=== PATIENT | female | born 1950 | race Caucasian/White ===

== ENCOUNTER → 2017-10-06 14:03 | Outpatient (CLI) | payer MEDICARE, BC ==
[2015-01-16 08:51] VITALS: BMI 35.9
[~2017-10-06 14:03] MED LIST: ALFALFA; AMBIEN10 MG PO; ASCORBIC ACID500 MG PO; BAYER CHEWABLE81 MG PO; BENICAR20 MG PO; BYSTOLIC10 MG PO; EDARBYCLOR 40-1 EACH PO; HYDROCODONE-APA1 TAB PO; LOVAZA1 G PO; LYSINE500 MG PO; MAG-OX 400 MG400 MG PO; METANX; MOBIC7.5 MG PO; NEXIUM40 MG PO; PREDNISONE; PROZAC40 MG PO; ZOCOR40 MG PO
== END | disposition home or self-care (01) ==
LOC: D.CT 10-05 17:00
DX: R06.02 Shortness of breath (principal)

== ENCOUNTER 2017-10-07 08:48 | Outpatient (CLI) | payer MEDICARE, BC ==
[~2017-10-07] VITALS: Ht 167.6 cm; Wt 105.5 kg
--- NOTE | ~2017-10-07 | OP ---
PATIENT NAME: ZARA JUNG MEDICAL RECORD: [id number] :46 LOCATION:D.CAT ADMISSION DATE: SURGEON: CRISTIAN AMARO MD DATE OF OPERATION: 10/07/2017 PROCEDURES: 1. Left heart catheterization. 2. Selective coronary angiography. 3. Left ventriculogram. INDICATION: Chest pain compatible with angina, coronary artery disease, and previous cardiac stent. DESCRIPTION OF PROCEDURE: After informed consent was obtained and after a detailed description of the risks, benefits as well as alternative therapies, the patient elected to proceed with angiogram and heart catheterization. The right radial area was prepped and draped in normal sterile fashion. Right radial artery was cannulated via modified Seldinger technique with placement of a 5-Slovak sheath. All catheters exchanged through this sheath. FINDINGS: Left ventriculogram was performed in a standard 30-degree PEOPLES view, reveals good cardiac wall motion throughout all segments. Overall ejection fraction estimated at 60%. SELECTIVE CORONARY ANGIOGRAPHY: 1. Left main is with no significant angiographic disease. 2. Left circumflex has previously placed stent at the proximal vessel. This is widely patent with no significant restenosis. No disease elsewise throughout the circumflex or its branches. 3. Left anterior descending has moderate irregularities, but no flow-limiting stenosis. 4. Right coronary artery is smooth-walled with no angiographic evidence of coronary artery disease. OVERALL IMPRESSION: No new coronary artery disease is present. No significant restenosis of the previously placed stent. Chest pain is noncardiac in etiology. No further cardiac workup needs to be ascertained. TRANSINT:[id number] Voice Confirmation ID: [id number] DOCUMENT ID: [id number] CRISTIAN AMARO MD at 1135 CC: [id number] DICTATION DATE: 10/07/17 [address] DRIVER: 10/07/17 1241 DEP CLI 10/07/17 [place] [id number] [place] [id number]
--- NOTE | ~2017-10-07 | HEMODYNAMI ---
PATIENT:ZARA JUNG MEDICAL RECORD: [id number] : 46 LOCATION:[facility]IGNA ADMISSION DATE: 10/07/17 Generatedon:10/07/201711:02 Patient name: ZARA JUNG Patient #: [id number] SSN: : 1950 Date of study: 10/07/2017 Page: Of Hemodynamic Procedure Report Patient Data Patient Demographics Procedure consent was obtained First Name: ZARA Gender: Female Last Name: FABIANA : 1950 [facility] Initial: DELORES Age: 67 year(s) Patient #: [id number] Race: Additional ID: [id number] Contact details Address: [address] [place] [address] [address] State: [place] City: [place] Zip code: [address] Past Medical History Allergies Allergen Reaction Date Comments Reported Iodine 01/16/2015 Admission Admission Data Admission Date: 10/07/2017 Admission Time: 8:48 Procedure Procedure Types Cath Procedure Diagnostic Procedure LHC LHC w/Coronaries Procedure Description Procedure Date Procedure Date: 10/07/2017 Procedure Start Time: 10:54 Procedure End Time: 11:00 Procedure Staff Name Function Refugio Sanchez MD Performing Physician Shandra Rey RT Scrub Bernadette Lawrence RN Nurse Cb Barrow RT Monitor Procedure Data Cath Procedure Fluoroscopy Diagnostic fluoroscopy Total fluoroscopy Time: 1 time: 1 min min Diagnostic fluoroscopy Total fluoroscopy dose: 231 dose: 231 mGy mGy Contrast Material Contrast Material Type Amount (ml) Isovue 300 38 Entry Location Entry Primary Successful Side Size Upsize Upsize Entry Closure Javier ccessful Closure Location (Fr) 1 (Fr) 2 (Fr) Remarks Device Remarks Radial Right 6 Fr Mechanical artery Short Compression Estimated blood loss: 10 ml Diagnostic catheters Device Type Used For End Catheter Placement DIAGNOSTIC [place] 110cm 5 Procedure Fr catheter ([id number]) Procedure Complications No complications Procedure Medications Medication Administration Route Dosage Oxygen NC 2 l/min Lidocaine 2% added to field 20 Heparin Flush Bag added to field 2 bags (1000units/500ml NS) 0.9% NaCl I.V. 100 ml/hr Versed I.V. 2 mg Fentanyl I.V. 100 mcg Versed I.V. 2 mg Fentanyl I.V. 100 mcg Versed I.V. 2 mg Fentanyl I.V. 100 mcg Radial Cocktail I.A. 1 syringe (Verapomil 2mg/Nitro 400mcg/Heparin 1500units) Versed I.V. 2 mg Fentanyl I.V. 25 mcg Hemodynamics Rest Heart Rate: 51 (bpm) Pressure Samples Time Site Value (mmHg) Purpose Heart Use Rate(bpm) 10:57 AO 114/75(92) Snapshot 50 Snapshots Pre Cath Intra NCS Post Cath Vital Signs Time Heart Resp SPO2 etCO2 NIBP (mmHg) Rhythm Pain Sedation Rate (ipm) (%) (mmHg) Status Level (bpm) 10:34:19 56 15 100 18.7 185/117(164) NSR 0 (11) 10(A) , No pain 10:38:51 55 16 100 28.4 183/106(164) NSR 0 (11) 10(A) , No pain 10:43:17 51 18 99 26.9 180/100(139) NSR 0 (11) 10(A) , No pain 10:47:50 47 19 96 33.7 161/94(140) NSR 0 (11) 10(A) , No pain 10:52:10 48 19 94 38.9 152/91(114) NSR 0 (11) 10(A) , No pain 10:56:36 63 12 96 37.4 111/76(89) NSR 0 (11) 9(A) , No pain 11:00:46 50 10 95 37.4 119/74(92) NSR 0 (11) 10(A) , No pain Medications Time Medication Route Dose Verified Delivered Reason Notes Effectiveness by by 10:38:20 Oxygen NC 2 l/min Refugio Buffie used for Daniel Lawrence project systems engineer 10:38:28 Lidocaine 2% added 20ml Refugio Huff for local to vial Daniel Sanchez MD anesthetic field 10:38:34 Heparin Flush added 2 bags Refugio Huff used for Bag to Daniel Sanchez MD procedure (1000units/500ml field NS) 10:38:43 0.9% NaCl I.V. 100 Refugio Buffie Per ml/hr Daniel Lawrence RN physician 10:45:00 Versed I.V. 2 mg Refugio Fleming for sedation Daniel Lawrence RN 10:45:06 Fentanyl I.V. 100 mcg Refugio Fleming for sedation Daniel Lawrence RN 10:48:38 Versed I.V. 2 mg Refugio Fleming for sedation Daniel Lawrence RN 10:48:41 Fentanyl I.V. 100 mcg Refugio Fleming for sedation Daniel Lawrence RN 10:51:19 Versed I.V. 2 mg Refugio Fleming for sedation Daniel Lawrence RN 10:51:22 Fentanyl I.V. 100 mcg Refugio Fleming for sedation Daniel Lawrence RN 10:54:16 Versed I.V. 2 mg Refugio Huff for sedation Daniel Sanchez MD 10:54:20 Fentanyl I.V. 25 mcg Refugio Huff for sedation Daniel Sanchez MD 10:55:41 Radial Cocktail I.A. 1 Refugio Huff for (Verapomil syringe Daniel Sanchez MD vasodilation 2mg/Nitro 400mcg/Heparin 1500units) Procedure Log Time Note 10:15:50 Bernadette Lawrence RN sent for patient. Start room use. 10:32:24 Informed consent obtained and on chart 10:32:28 Diagnostic Cath Status : Elective 10:32:51 Time tracking: Regular hours (M-F 7:00 - 5:00) 10:32:55 Plan of Care:Hemodynamics will remain stable., Cardiac rhythm will remain stable., Comfort level will be maintained., Respiratory function will remain adequate., Patient/ family verbilizes understanding of procedure., Procedure tolerated without complication., Recovers from procedure without complications.. 10:32:59 Patient received from Pre/Post Procedure Room to CCL 2 Alert and oriented. Tansferred to table in Supine position. 10:33:00 Warm blankets applied, and shirley hugger turned on for patient comfort. 10:33:00 Correct patient and procedure confirmed by team. 10:33:01 ECG and BP/O2 sat monitors applied to patient. 10:33:02 Vital chart was started 10:33:04 Baseline sample Acquired. 10:33:09 Rhythm: sinus rhythm 10:33:11 Full Disclosure recording started 10:33:16 H&P Date Dictated: 10/07/2017 Within 30 days and on chart., H&P Addendum completed by physician on day of procedure. (MUST COMPLETE FOR ALL OUTPATIENTS). 10:33:18 Pre-procedure instructions explained to patient. 10:33:19 Pre-op teaching completed and patient verbalized understanding. 10:33:20 Family in waiting room. 10:33:22 Patient NPO since Midnight. 10:33:24 Is the patient allergic to Iodine/contrast media? Yes. 10:33:26 Was the patient premedicated? Yes 10:33:27 Is patient on blood thinner?No 10:33:30 Patient diabetic? Yes. 10:33:30 If diabetic: On Metformin? No 10:33:32 Previous problem with sedation/anesthesia? No ? 10:33:34 Snore? No 10:33:35 Sleep apnea? No 10:33:36 Deviated septum? No 10:33:37 Opens mouth fully? Yes 10:33:38 Sticks out tongue? Yes 10:33:41 Airway obstruction? No ? 10:33:44 Dentures? No ? 10:33:48 Pre procedure: right dorsailis pedis pulse 2+ Normal; easily identifiable; not easily obliterated 10:33:50 Pre procedure: left dorsailis pedis pulse 2+ Normal; easily identifiable; not easily obliterated 10:33:53 Patient pain scale 0/10 ?. 10:33:58 IV patent on arrival in left forearm with 0.9% NaCl at [facility]. 10:34:01 Lab results completed and on chart. 10:34:05 Right Radial & Right Groin area was prepped with chlora-prep and draped in sterile fashion 10:34:09 Alarms reviewed by R. N. 10:34:10 Sharps counted by scrub and verified by R.N. 10:38:20 Oxygen 2 l/min NC was administered by Bernadette Lawrence RN; used for procedure; 10:38:28 Lidocaine 2% 20ml vial added to field was administered by Refugio Sanchez MD; for local anesthetic; 10:38:34 Heparin Flush Bag (1000units/500ml NS) 2 bags added to field was administered by Refugio Sanchez MD; used for procedure; 10:38:43 0.9% NaCl 100 ml/hr I.V. was administered by Buffie Lawrence RN; Per physician; 10:44: --------ALL STOP TIME OUT------ :: Final Timeout: patient, procedure, and site verified with staff and physician. All members of the team are in agreement. 10:44:29 Right Radial & Right Groin site verified by team. 10:44:37 Physical assessment completed. ASA score P 2 - A patient with mild systemic disease as per Refugio Sanchez MD. 10:44:41 Sedation plan: IV Moderate Sedation Medication:Versed, Fentanyl 10:45:00 Versed 2 mg I.V. was administered by Bernadette Lawrence RN; for sedation; 10:45:06 Fentanyl 100 mcg I.V. was administered by Bernadette Lawrence RN; for sedation; 10:46:41 Use device set Radial Dx or PCI 10:46:44 Tegaderm 4 x 4 (1626W) opened to sterile field. 10:46:44 ACIST Manifold (07768) opened to sterile field. 10:46:45 ACIST Hand Control (62339) opened to sterile field. 10:46:50 Bag Decanter (2002S) opened to sterile field. 10:46:51 ACIST Syringe (55289) opened to sterile field. 10:46:51 Medline Cath Pack ([id number]) opened to sterile field. 10:46:52 MBrace Wrist Support ([id number]) opened to sterile field. 10:46:53 DIAGNOSTIC WIRE .035 260cm J wire (165773) opened to sterile field. 10:46:56 SHEATH 6Fr Prelude Radial ([id number]) opened to sterile field. 10:47:04 Zero performed for pressure channel P1 10:47:06 Zero performed for pressure channel P1 10:47:08 Zero performed for pressure channel P1 10:47:11 Zero performed for pressure channel P1 10:47:13 Zero performed for pressure channel P1 10:48:23 Zero performed for pressure channel P1 10:48:38 Versed 2 mg I.V. was administered by Bernadette Lawrence RN; for sedation; 10:48:41 Fentanyl 100 mcg I.V. was administered by Bernadette Lawrence RN; for sedation; 10:51:19 Versed 2 mg I.V. was administered by Bernadette Lawrence RN; for sedation; 10:51:22 Fentanyl 100 mcg I.V. was administered by Bernadette Lawrence RN; for sedation; 10:54:00 Procedure started. 10:54:06 Local anesthetic to right radial artery with Lidocaine 2% by Refugio Sanchez MD.INITIAL ACCESS ONLY 10:54:16 Versed 2 mg I.V. was administered by Refugio Sanchez MD; for sedation; 10:54:20 Fentanyl 25 mcg I.V. was administered by Refugio Sanchez MD; for sedation; 10:54:58 A 6 Fr Short sheath was inserted into the Right Radial artery 10:55:41 Radial Cocktail (Verapomil 2mg/Nitro 400mcg/Heparin 1500units) 1 syringe I.A. was administered by Refugio Sanchez MD; for vasodilation; 10:56:44 A DIAGNOSTIC [place] 110cm 5 Fr catheter ([id number]) was advanced over the wire and used for Procedure. 10:57:05 LV angiography performed. 10:57:06 LV gram done using PEOPLES 10:57:11 EF : 60 % 10:57:14 Injector settings: Ml/sec: 7, Volume: 15, 10:57:32 LCA angiography performed. 10:58:07 RCA angiography performed. 10:58:35 Catheter removed. 10:58:52 TR BAND Standard ([id number]) opened to sterile field. 10:59:07 Sheath removed intact; hemostasis achieved with Mechanical Compression to the Right Radial artery. 10:59:09 Procedure ended.(Physican Out) 10:59:21 Fluoroscopy time 01.00 minutes. 10:59:31 Flurop Dose total: 231 10:59:31 Fluoroscopy dose: 231 mGy 10:59:35 Contrast amount:Isovue 300 38ml. 10:59:36 Sharps counted by scrub and verified by R.N. 10:59:39 TR band inflated with 10cc of air. 10:59:40 Insertion/operative site no bleeding no hematoma. 10:59:42 Post Procedure Pulses reassessed and unchanged 10:59:44 Post-procedure physical assessment completed. ASA score P 2 - A patient with mild systemic disease as per Refugio Sanchez MD. 10:59:46 Post procedure rhythm: unchanged. 10:59:49 Estimated blood loss: 10 ml 10:59:50 Post procedure instruction explained to patient.Patient verbalizes understanding. 10:59:51 Patient needs reinforcement of post procedure teaching. 11:00:10 Procedure and supply charges have been captured, reviewed, submitted and are correct. 11:00:12 Procedure Complication : No complications 11:00:50 Vital chart was stopped 11:00:50 See physician's report for complete and final results. 11:00:53 Report given to Pre/Post Procedure Room. 11:00:55 Patient transfered to Pre/Post Procedure Room with Stretcher. 11:00:57 Procedure ended. 11:00:57 Full Disclosure recording stopped 11:01:55 End room use (Document Last) Device Usage Item Name Manufacture Quantity Catalog Number Hospital Part Current M inimal Lot# / Charge Number Stock Stock Serial# Code Tegaderm 4 x 4 3M 1 [id number] 5 (1626W) ACIST Manifold Acist 1 36449 938162 412782 944123 5 (01099) [employer] ACIST Hand Acist 1 60167 743413 810745 682022 5 Control (01010) [employer] Bag Decanter Microtek 1 2001S 050297 79291 818309 5 (2001S) Medical Inc. ACIST Syringe Acist 1 91704 507041 220639 230701 2 0 (77200) [employer] Medline Cath Cardinal 1 [id number] 360188 31244 159221 5 [facility] ([id number]) MBrace Wrist Advanced 1 140-0250-00 603400 61061 462189 5 Support Vascular ([id number]) Dynamics DIAGNOSTIC WIRE [facility] [place] 1 820389 990778 391725 504014 3 0 .035 260cm J wire (884768) SHEATH 6Fr Merit 1 [id number] 809603 090751 018583 5 Prelude Radial Medical ([id number]) DIAGNOSTIC Terumo 1 53-1995 995639 979199 193589 5 [place] 110cm 5 Fr catheter (728964) TR BAND Terumo 1 [id number] 688713 806774 027912 4 0 Standard ([id number]) Signature Audit [place] Time Signature Unsigned Intra-Procedure 10/07/2017 Cb Barrow 11:02:12 AM RT(R) Signatures Monitor : Cb Barrow RT Signature : Date : Time : [address] [place] [address]
[~2017-10-07 08:48] MED LIST changes: -EDARBYCLOR 40-1 EACH PO; -HYDROCODONE-APA1 TAB PO
[2017-10-07 09:52] VITALS: BP 157/88; Ht 167.6 cm; Wt 105.5 kg
[2017-10-07] MEDS ORDERED: EDARBYCLOR 40-1 EACH PO (09:57)
[2017-10-07] MEDS ORDERED: HYDROCODONE-APA1 TAB PO (09:59)
[2017-10-07] MEDS ORDERED: ZOCOR40 MG PO (10:01)
[2017-10-07 10:03] LABS: BASOPHILS 0.1 % (0-2); EOSINOPHILS 0.2 % (0-7); HEMATOCRIT 37.2 % (36.0-48.0); HEMOGLOBIN 12.2 g/dL (12-16); IMMATURE GRANULOCYTES 0.4 % (0-5); LYMPHOCYTES 27.5 % (15-50); MCH 28.8 pg (26.0-34.0); MCHC 32.8 g/dL (31.0-37.0); MCV 87.9 fL (80.0-100.0); MEAN PLATELET VOLUME 10.4 fL (7.4-10.4); MONOCYTES 7.1 % (2-11); NEUTROPHILS 64.7 % (40-80); PLATELET COUNT 194 10x3/uL (130-400); RBC 4.23 10x6/uL (4.00-5.40); WBC 11.5 10x3/uL (4.8-10.8)
[2017-10-07 10:18] LABS: CALC OSMOLALITY 285 mosm/kg (275-300); CARBON DIOXIDE 29.2 mmol/L (21.0-32.0); CHLORIDE - SERUM 104 mmol/L (98-107); CREATININE - SERUM 0.8 mg/dL (0.6-1.3); GLUCOSE 84 mg/dL (74-106); POTASSIUM - SERUM 3.5 mmol/L (3.5-5.1); SODIUM 142 mmol/L (136-145); UREA NITROGEN 23 mg/dL (7-18); eGFR NON AFRICAN AMERICAN 75 mL/min (90-120)
== END 2017-10-07 13:15 | disposition home or self-care (01) ==
LOC: D.CATH 08:48
PROVIDERS: Internal Medicine Interventional Cardiology
DX: R07.9 Chest pain, unspecified (principal); I25.10 Atherosclerotic heart disease of native coronary artery without angina pectoris; Z95.5 Presence of coronary angioplasty implant and graft

== ENCOUNTER → 2019-04-12 20:43 | Outpatient (CLI) | payer MEDICARE, BC ==
[2017-10-07 09:52] VITALS: BMI 37.5
[~2019-04-12 20:43] MED LIST changes: +EDARBYCLOR 40-1 EACH PO; +HYDROCODONE-APA1 TAB PO
== END | disposition home or self-care (01) ==
LOC: D.MAMMO 11:30
PROVIDERS: ATTEND Emergency Medicine
DX: Z12.31 Encounter for screening mammogram for malignant neoplasm of breast (principal)